=== PATIENT | female | born 1925 | race Caucasian/White ===

== ENCOUNTER 2017-02-05 11:51 | Emergency (ER) ==
[2017-02-05 12:00] VITALS: BP 128/76; TEMP 99.6; BMI 20.2
--- NOTE | 2017-02-05 13:12 | CT ---
EXAM: CT BRAIN HISTORY: Head pain TECHNIQUE: CT brain without intravenous contrast. 5-mm axial sections with Reformations. COMPARISON: 08/12/2012 FINDINGS: There is generalized atrophy. Severe chronic microvascular ischemic change is suggested. Tiny lacu dionne infarction right basal ganglia. Mild compensatory ventriculomegaly. These involutional changes are more noticeable since 2011. Brain otherwise is unremarkable without distinct evidence of hemorr loan or large vessel distribution recent ischemic infarction. There is no suggestion of acute hydro cephalus or subdural fluid collection. No mass or mass effect. Cranium is within normal limits. Mastoid air cells are aerated. The visualized paranasal sinuses are clear. IMPRESSION: Noticeably worsened involutional changes since 2011. No obvious acute intracranial proc ess.
--- NOTE | 2017-02-05 13:12 | CT ---
EXAM: CT thoracic spine without contrast HISTORY: Back pain after falling 1 week ago. Patient with history of bilateral hip surgery and splen ectomy. COMPARISON: Thoracic spine x-rays 04/02/09 TECHNIQUE: Serial axial images of the thoracic spine were performed without contrast. These were v iewed in multiple planes. FINDINGS: The there is sclerotic appearance of compression fracture noted at all T11. No additional compression fractures identified. There is multilevel facet arthropathy and anterior disc osteophy connor. There is mild unchanged compression deformity at L1. No additional areas of abnormality are id entified. There is rightward curvature of the thoracic spine. The osseous structures are unremarka ble. There is no definitive central or neural foraminal narrowing. Soft tissues demonstrate nonobstructing renal stones. There are calcified granulomas present. The lungs demonstrate mild bronchiectasis and dependent emphysema and atelectasis. IMPRESSION: 1. New sclerotic compression fracture at T11. If further evaluation is clinically indicated, MR may be obtained. There is no central or neural foraminal narrowing noted at this level. 2. 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 3. Changes of chronic obstructive pulmonary disease with no acute consolidation and nonobstructing r ight renal stones.
--- NOTE | 2017-02-05 13:18 | CT ---
EXAM: CT Pelvis without contrast. HISTORY: Bilateral hip pain following a fall 1 week prior. Initial presentation. COMPARISON: 08/03/2014. TECHNIQUE: Multiple axial images of the pelvis were obtained without intravenous contrast. Images were reformatted in the coronal and sagittal plane. FINDINGS: Please note that evaluation of the pelvic soft tissue structures is limited due to lack o f intravenous contrast. Intramedullary nails present within both femurs for old intertrochanteric femoral fractures. Old le ft iliac wing fracture noted. There are old left superior and inferior pubic ramus fractures. Ther e is probably an old right sided sacral fracture as well. No acute fracture or dislocation identifi ed. No localized soft tissue abnormality detected. Atherosclerotic calcifications are present. Co lonic diverticulosis noted. IMPRESSION: 1. No acute fracture or dislocation. 2. Multiple old fractures as described.
--- NOTE | 2017-02-05 13:36 | CT ---
EXAM: CT lumbar spine without contrast HISTORY: Back pain post fall 1 week ago. Patient with history of hysterectomy and appendectomy and h ernia repair with bilateral surgery COMPARISON: Same day CT thoracic spine with lumbar spine CT 03/21/2011 TECHNIQUE: Serial axial images of the lumbar spine were obtained without contrast. These were view ed in multiple planes. FINDINGS: The a small sclerotic compression fracture at T11 is redemonstrated. There is unchanged m ild compression deformity at L1. No acute compression deformity is noted throughout the remaining l umbar spine. There is scattered degenerative disease and facet arthropathy. There is narrowing at L2-L3 with disc osteophytes present. The lumbosacral junction is unremarkable. There is leftward c urvature of the lumbar spine. There is a vertical linear fracture through the left sacrum as seen on coronal image 38. There is multilevel broad-based disc bulge with central moderate and bilateral moderate neural humberto inal narrowing noted at L3-L4. There is broad-based disc bulge with facet arthropathy and ligamentu m flavum hypertrophy contributing to moderate central narrowing and mild to moderate bilateral neura l foraminal narrowing at L4-L5. There is a broad-based disc bulge with severe left neural foraminal narrowing. There is diverticulosis. There is moderate atherosclerotic disease. There are nonobstructing stone s. IMPRESSION: 1. The sclerotic compression fracture of T11 is better described on same day thoracic spine CT. 2. No acute compression fracture of the lumbar spine with multilevel degenerative disease contribut ing to moderate central and neural foraminal narrowing most noted at L3-L4 and L4 - L5. If further evaluation is indicated, MRI may be obtained. 3. Linear lucency in the left sacrum may represent a nondisplaced fracture. If further evaluation is indicated, MRI may be obtained. 4. Moderate atherosclerotic disease with diverticulosis.
--- NOTE | 2017-02-05 14:14 | ED.PDOC ---
General ED Provider: Dr. ARSENIO ROSE Chief Complaint: Fall Stated Complaint: LOW BACK PAIN HIP PAIN Time Seen by Physician: 12:00 (LOW BACK PAIN AFTER A FALL 7 DAYS AGO) Mode of Arrival: Wheelchair Information Source: Patient Exam Limitations: No limitations Primary Care Provider: RIAZ SALINAS Nursing and Triage Documentation Reviewed and Agree: Yes (NO VERTEBRAL POINT TENDERNESS , PAIN LIMITED TO HIPS AND L/SPINE) Musculoskeletal Complaint Exam - Back Pain Complaint/Exam Mechanism of Injury: Reports: Trauma Onset/Duration: FALL Symptoms Are: Still present Timing: Constant Episodes Lasting: Hours Initial Severity: Moderate Current Severity: Moderate Character: Reports: Aching Aggravating: Reports: None Alleviating: Reports: Rest Associated Signs and Symptoms: Denies: Swelling, Redness, Bruising, Fever, Weakness, Numbness, Tingling, Abdominal pain, Flank pain, Bladder incontinence, Bowel incontinence, Weight loss, Pain with weight bearing Related History: Reports: Similar episode TAD Risk Factors: Reports: Hypertension AAA Risk Factors: Reports: Hypertension Cauda Equina Risk Factors: Reports: None Epidural Abcess Risk Factors: Reports: None Related Surgical History: Reports: None Focal Tenderness: No Paraspinal Muscle Tenderness: No Paraspinal Muscle Spasm: No Scoliosis: No Lordosis: No Kyphosis: No SLR Test: Right Negative, Left Negative Hip Motion Testing Pain: Right Negative, Left Negative Focal Weakness: Present: None Focal Sensory Loss: Present: None Gait: Present: Normal Differential Diagnoses: Strain, Sprain Review of Systems - Review Of Systems Constitutional: Reports: No symptoms Eyes: Reports: No symptoms Ears, Nose, Mouth, Throat: Reports: No symptoms Respiratory: Reports: No symptoms Cardiac: Reports: No symptoms GI: Reports: No symptoms : Reports: No symptoms Musculoskeletal: Reports: Back pain Skin: Reports: No symptoms Neurological: Reports: No symptoms Endocrine: Reports: No symptoms Hematologic/Lymphatic: Reports: No symptoms All Other Systems: Reviewed and Negative Past Medical History - Past Medical History Previously Healthy: Yes Endocrine: Reports: None Cardiovascular: Reports: None Respiratory: Reports: None Hematological: Reports: None Gastrointestinal: Reports: None Genitourinary: Reports: None Neuro/Psych: Reports: None Musculoskeletal: Reports: None Cancer: Reports: None Last Menstrual Period: NA - Surgical History General Surgical History: Reports: None - Family History Family History: Reports: None - Social History Smoking Status: Current every day smoker Hx Substance Use: No Alcohol Screening: None Physical Exam - Physical Exam Appearance: Well-appearing, No pain distress, Well-nourished Eyes: JERICHO, EOMI, Conjunctiva clear ENT: Ears normal, Nose normal, Oropharynx normal Respiratory: Airway patent, Breath sounds clear, Breath sounds equal, Respirations nonlabored Cardiovascular: RRR, Pulses normal, No rub, No murmur GI/: Soft, Nontender, No masses, Bowel sounds normal, No Organomegaly Musculoskeletal: Normal strength, ROM intact, No edema, No calf tenderness Skin: Warm, Dry, Normal color Neurological: Sensation intact, Motor intact, Reflexes intact, Cranial nerves intact, Alert, Oriented Psychiatric: Affect appropriate, Mood appropriate Interpretation - Radiology Interpretation Radiology Interpretation By: Radiologist Radiology Results: Positive (T11 FX NEW) Critical Care Note - Critical Care Note Total Time (mins): 0 Course - Course Orders, Labs, Meds: Orders Category Date Time Status CT HEAD W/O CONTRAST Stat RADS 02/05/17 12:[address] LUMBAR SPINE W/O CONTRAST Stat RADS 02/05/17 12:[address] PELVIS W/O CONTRAST Stat RADS 02/05/17 12:[address] THORACIC SPINE W/O CONTRAST Stat RADS 02/05/17 12:08 Completed Vital Signs: Temp Pulse Resp BP Pulse Ox 02/05/17 11:54 99.6 F 55 L 16 128/76 95 Departure - Departure Time of Disposition: 14:15 (DISCUSSED ALL IMAGING WITH FAMILY MRI DISCUSSED , THE PAIN IS NOT THE AREA OF COMPLAINT) Disposition: HOME SELF-CARE Discharge Problem: Thoracic compression fracture Qualifiers: Encounter type: initial encounter Fracture type: closed Qualifier Code: ( S22.000A) Wedge compression fracture of unspecified thoracic vertebra, initial encounter for closed fracture Instructions: Vertebral Compression Fracture (ED) Condition: Good Pt referred to PMD for follow-up: No Additional Instructions: Please call your Family Physician as soon as possible to schedule a follow-up appointment. Allergies/Adverse Reactions: Allergies Sulfa (Sulfonamide Antibiotics) Adverse Reaction (Unverified 02/05/17 11:54) Home Medications: Ambulatory Orders Aspirin [Aspirin EC] 81 mg PO DAILY 05/09/13 Carvedilol [Coreg] 3.125 mg PO BID 05/09/13 Docusate Sodium 1 - 2 mg PO BEDTIME 05/09/13 Enalapril Maleate 20 mg PO BID 05/09/13 Gabapentin [Neurontin] 2 cap PO BID 05/09/13 Hydrocodone Bit/Acetaminophen [Lortab 5-500] 1 tab PO QID PRN 05/09/13 Lorazepam [Ativan] 1 mg PO DAILY PRN 05/09/13 Nitrofurantoin Macrocrystal [Nitrofurantoin] 50 mg PO BEDTIME 05/09/13 Pantoprazole Sodium [Protonix] 40 mg PO QDAC 05/09/13
[2017-02-05] MEDS ORDERED: NORCO 10-325 PO STA (14:18)
== END 2017-02-05 15:01 | disposition home or self-care (01) ==
LOC: ED 11:51
DX: S22.000A Wedge compression fracture of unspecified thoracic vertebra, initial encounter for closed fracture (principal); W19.XXXA Unspecified fall, initial encounter; I10 Essential (primary) hypertension; F17.210 Nicotine dependence, cigarettes, uncomplicated; Z79.899 Other long term (current) drug therapy
CPT/HCPCS: 99283

== ENCOUNTER 2017-02-09 11:59 | Outpatient (CLI) | payer OTHER ==
[2013-03-06 10:41] VITALS: TEMP 97.8
--- NOTE | 2017-02-10 05:50 | MRI ---
EXAM: MRI thoracic spine without IV contrast. DATE: 09 Feb 2017. HISTORY: Compression fracture thoracic spine S/P fall. TECHNIQUE: Sagittal and axial T1W and T2W sequences of the thoracic spine along with sagittal IR an d coronal T2W sequences were obtained using 1.2 Ness magnet. No IV contrast. Note: The axial imag es reference markers could are not aligned with any of the sagittal sequences. COMPARISON: T-spine series [address] T-spine 05 Feb 2017. FINDINGS: Sagittal counting boat designer sequence of the cervical and upper thoracic spine reveals straigh tening of the cervical lordosis. Prominent anterior osteophytes and marked disc space narrowing are present at C5-6 and C6-7. No acute c-spine fracture, malignancy, or jumped facet is evident. 1.5 mm anterior subluxation of C6 relative to C7 is noted. Posterior disc/osteophyte complexes appeared cause marked central canal stenosis at C3-4, C5-6, and C6-7. No definitive cervical cord edema, sy rinx, or myelomalacia. Cerebral and cerebellar atrophy are noted. No definitive acute cerebral inf arct, hemorrhage, or neoplasm. No Chiari one malformation. T2W bright areas in the mabel likely rep resent small vessel disease and/or old infarcts. No neck mass or lymphadenopathy is identified. A T2W bright, 6.4 x 6.5 mm focus in the left thyroid lobe is likely a cyst. There are 12 thoracic vertebra with paired ribs. Moderate rightward curvature of the thoracic spine is observed. Anterior and lateral osteophytes are present multiple mid and lower thoracic vertebra. IR mild hyperintensity, T1W low signal, horizontal fracture line, and mild vertebral height loss a re observed in the T11 body. This corresponds with the sclerotic vertebra seen on recent CT scan. Mild IR hyperintensity is noted near the T12 superior endplate. Modic type 1 degenerate endplate ch anges are most marked at T6-7 and T7-8. No other acute fracture, subluxation, or jumped facet. T2W /T1W bone marrow signal is somewhat heterogeneous due to areas of fatty infiltration. Left-sided di sc space narrowing is noted at several mid thoracic levels. Conus medullaris terminates at L1-2. N o cord edema, syrinx, myelomalacia, or neoplasm is identified. No definitive acute rib fracture, rib malignancy, paraspinal mass, or chest wall neoplasm is detecte d. No distinct lung mass, pneumonia, or pleural effusion is evident. Trachea, thyroid gland, thoraci c esophagus, mediastinum and heart grossly normal. Atherosclerotic plaques are present within the a ortic wall. No thoracic aortic aneurysm. No shoulder dislocation or acute fracture is evident. Visible portions of the liver, spleen, adrenal glands and kidneys reveal no definitive malignancy. Bilateral extrarenal pelves appear benign. Limited boat designer images through the lumbar spine reveals mu ltilevel disc disease. Segmental analysis: T1-2: No disc protrusion or central stenosis. Mild right foraminal narrowing is due to mild facet arthropathy. T2-3: Normal. T3-4: Normal, some mild right facet arthropathy. T4-5: Normal, except for minor right facet arthropathy. T5-6: Normal. T6-7: Normal. T7-8: Normal. T8-9: Normal, except for minor facet arthropathy and tiny facet effusions. T9-10: Normal, except for minor facet arthropathy and tiny facet effusions. T10-11: Normal, several mild bilateral facet arthropathy. T11-12: Small posterior disc bulge does not cause cord compression or central stenosis. There is m ild right foraminal stenosis due to facet arthropathy. T12-L1: Minimal posterior disc bulge does not cause cord compression central stenosis. Each forame n is patent. IMPRESSIONS: 1. T11 recent compression fracture (mild). Sclerosis in the T11 vertebra could be due to chronic d egenerative disease combined with the fracture. A tumor infiltrate process is not totally excluded the, but is less likely given the CT appearance where trabeculae are well visualized. 2. T12 superior endplate degenerative changes, without distinct fracture. 3. T-spine mild dextroscoliosis, marked spondylosis, mild facet arthropathy, and mild DDD. 4. No thoracic spinal cord compression or central canal stenosis. 5. Multilevel cervical DDD and high-grade central canal stenoses. 6. Multilevel lumbar disc disease. 7. Cerebral and cerebellar atrophy. 8. 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 9. Left thyroid nodule - likely cyst, but not fully characterized.
== END 2017-02-09 12:00 | disposition home or self-care (01) ==
LOC: RAD 11:59
PROVIDERS: ATTEND Family Medicine
DX: S22.000D Wedge compression fracture of unspecified thoracic vertebra, subsequent encounter for fracture with routine healing (principal); W19.XXXA Unspecified fall, initial encounter

== ENCOUNTER 2017-02-14 11:40 | Outpatient (CLI) ==
[2013-03-06 10:41] VITALS: TEMP 97.8
--- NOTE | 2017-02-14 16:05 | MRI ---
EXAM: MRI of the pelvis without contrast COMPARISON: CT of the pelvis 02/05/2017. HISTORY: Fall last week with back pain and tailbone pain. Bilateral hip pain. Closed fracture of t he sacrum. TECHNIQUE: Multiplanar noncontrast MR images of the pelvis/hips were acquired using a 1.2 Ness mag net. The submitted images are moderately limited by patient motion artifact. FINDINGS: Postoperative changes of the proximal femurs bilaterally with susceptibility artifact rel ated to fixation rods bilaterally. Mild to moderate degenerative changes of the hips bilaterally wi th moderate hip effusions bilaterally. Chronic-appearing deformity of the left superior and inferio r pubic rami as well as the left iliac crest related to old healed fractures. Bilateral sacral insu fficiency fractures with more acute appearing fracture with extensive marrow edema involving the lef t sacral ala. The fracture traverses the midline at the level of the S3 and S4 vertebral bodies wit h 2 mm cortical step off. Marrow edema throughout the coccyx as well consistent with marrow contusio n without a displaced coccygeal fragment. Intervertebral disc desiccation and a space narrowing thro ughout the lower lumbar spine. Sacroiliac joint osteoarthrosis bilaterally. Facet hypertrophy thro ughout the lower lumbar spine. Small focus of insufficiency fracture within the posterior portion o f the right iliac crest with marrow edema. Mild degenerative spurring pubic symphysis. Diffuse muscle atrophy. Hamstring tendinosis bilaterally. Gluteus minimus tendinosis enthesopathy bilaterally. Collecting reticular cyst without evidence of acute diverticulitis. The sciatic nerve s are unremarkable appearance throughout the visualized course bilaterally. IMPRESSION: 1. Bilateral sacral insufficiency fractures with more recent appearing fracture involving the left sacral ala with extensive marrow edema and fracture traversing the midline at the level of S3/S4. R ecent insufficiency fracture of the posterior portion of the right iliac crest. Marrow contusion in volving the coccyx. Old healed fractures of the left obturator ring and left iliac crest. 2. Postoperative changes of the proximal femurs. 3. Osteoarthrosis as described. Moderate sized hip joint effusions, nonspecific. 4. Muscle atrophy. Hamstring tendinosis. 5. Degenerative changes of the lumbar spine. 6. Colonic diverticulosis.
== END 2017-02-14 11:41 | disposition home or self-care (01) ==
LOC: RAD 11:40
PROVIDERS: ATTEND Family Medicine
DX: S32.10XA Unspecified fracture of sacrum, initial encounter for closed fracture (principal); M54.5 Low back pain; W19.XXXA Unspecified fall, initial encounter

== ENCOUNTER 2017-04-27 15:11 | Outpatient (CLI) ==
[2013-03-06 10:41] VITALS: TEMP 97.8
--- NOTE | 2017-04-27 16:00 | DI ---
EXAM: Radiographs, chest and bilateral rib HISTORY: Chest pain. COMPARISON: 05/09/2013. TECHNIQUE: Five views. FINDINGS: Heart size is normal. Atherosclerotic calcifications present. Lungs are clear save for calcified granulomatous changes. No pleural effusion or pneumothorax identified. No rib fracture i dentified. Left convex thoracolumbar scoliosis noted with degenerative changes present throughout t he spine. Mild T11 compression deformity noted. There may be other mild thoracolumbar vertebral co mpression deformities. IMPRESSION: No acute abnormality of the chest.
--- NOTE | 2017-04-27 16:01 | CT ---
EXAM: CT of the head without contrast History: Head trauma. Comparison: Head CT 02/05/2017 Technique: Multiplanar CT images through the head were obtained without the administration of IV co ntrast Findings: The visualized paranasal sinuses and mastoid air cells are clear in general. No acute ca lvarial abnormalities. Intracranially there are atherosclerotic vascular calcifications. Stable atrophy. No midline shift and no hydrocephalus. No acute intracranial hemorrhage or abnormal extraaxial fluid collections. No significant interval change in the periventricular and subcortical white matter hypodensities and old small bilateral basal ganglial lacunar infarctions. Impression: No acute intracranial hemorrhage. Stable chronic brain changes.
== END 2017-04-27 15:12 | disposition home or self-care (01) ==
LOC: RAD 15:11
PROVIDERS: ATTEND Family Medicine
DX: S09.90XA Unspecified injury of head, initial encounter (principal); R07.81 Pleurodynia